=== PATIENT | male | born 1965 | race African-American/Black ===

== ENCOUNTER 2016-09-25 16:20 | Emergency (ER) | payer OTHER ==
[2016-09-25 16:26] VITALS: BP 142/81; PULSE 76; TEMP 97.9; BMI 31.8
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
[2016-09-25] MEDS ORDERED: IBUPROFEN 600 MG TABLET (FP) PO ONE (17:18)
[2016-09-25] MEDS ORDERED: IBUPROFEN 400 MG TABLET (FP) PO ONE (17:21)
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
== END 2016-09-25 17:46 | disposition home or self-care (01) ==
LOC: JERFT 16:20
DX: S49.92XA Unspecified injury of left shoulder and upper arm, initial encounter (principal); W51.XXXA Accidental striking against or bumped into by another person, initial encounter; Y93.89 Activity, other specified; Y92.9 Unspecified place or not applicable; Y99.0 Civilian activity done for income or pay; F17.210 Nicotine dependence, cigarettes, uncomplicated
CPT/HCPCS: 73030-TC-LT; 99281-25

== ENCOUNTER 2019-01-12 16:41 | Emergency (ER) | payer OTHER ==
[2019-01-12 16:45] VITALS: BP 150/92; PULSE 105; TEMP 98.2; BMI 31.4
[2019-01-12] MEDS ORDERED: DIPHTH,PERTUSS(ACELL),TET 0.5 ML DISP.SYRIN IM ONE ×2 (17:30→17:31)
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
== END 2019-01-12 17:38 | disposition home or self-care (01) ==
LOC: JERFT 16:41
PROC: 3E0234Z Introduction of Serum, Toxoid and Vaccine into Muscle, Percutaneous Approach (ICD-10-PCS; principal; 2019-01-12)
DX: S00.83XA Contusion of other part of head, initial encounter (principal); S00.81XA Abrasion of other part of head, initial encounter; W22.8XXA Striking against or struck by other objects, initial encounter; Y93.89 Activity, other specified; Y92.89 Other specified places as the place of occurrence of the external cause; Y99.8 Other external cause status
CPT/HCPCS: 90715; 99281-25